=== PATIENT | male | born 1975 | race Caucasian/White ===

== ENCOUNTER 2022-01-11 09:12 | Outpatient (CLI) | payer OTHER, SELFPAY | END 2022-01-11 09:13 | disposition home or self-care (01) | LOC: ANHAUDIO 09:15 | PROVIDERS: PCP Internal Medicine; Visit Provider Otolaryngology | DX: H91.93 Unspecified hearing loss, bilateral (principal) | CPT/HCPCS: 92557; 92567 ==

== ENCOUNTER 2022-03-13 09:49 | Outpatient (RCR) | payer OTHER, SELFPAY | END 2022-03-13 23:59 | disposition home or self-care (01) | LOC: ANHAUDIO 09:49 | PROVIDERS: PCP Internal Medicine; Referring Provider Internal Medicine; Visit Provider Internal Medicine | DX: Z46.1 Encounter for fitting and adjustment of hearing aid (principal) | CPT/HCPCS: V5160; V5261; V5264 ==